=== PATIENT | female | born 1985 | race Caucasian/White ===

== ENCOUNTER 2021-08-10 14:37 | Inpatient (IN) | payer MEDICAID, SELFPAY ==
[2021-08-10 14:47] VITALS: BP 131/82; PULSE 78; RESP 16; TEMP 36.9; O2SAT 97; BMI 40.4
[2021-08-10 14:56] VITALS: BP 131/82; PULSE 78; RESP 16; TEMP 36.9; O2SAT 97
--- NOTE | 2021-08-10 14:57 | ED.C_ITS ---
HPI - Psych General: Chief Complaint: Psychiatric Symptoms Stated Complaint: SI Time Seen by Provider: 08/10/21 14:57 History of Present Illness: HPI Narrative: Ms. Bass is a 36-year-old lady with history of anxiety and depression who presents emergency department due to Julio César ideation with plan. She has difficulty characterizing any of her symptoms however she has had longstanding symptoms. She has previously been on medication but nothing recently does not feel that significantly helped. She does have a history of self-harm with longitudinal lacerations down the arms. Over the past few months she has had increased symptoms which includes wanting to sleep with the time or not sleeping at all. Binge eating or not eating. Loss of interest. And memory lapses. She had thoughts of stabbing herself with a knife and blacked out. She subsequently found the knife custodial through a cutting board and does not recall what happened. Overall the intensity symptoms has been worsening and is moderate to severe. She otherwise denies any new medical complaints. No other specific exacerbating relieving factors identified. Review of Systems General: Reports: 10 or more systems reviewed and unremarkable except in HPI and below PFSH ED PFSH: Medical History Psychiatric care Female Reproductive History: Date of last menstrual period: 08/01/21 Physical Exam Narrative: EXAM NARRATIVE: GENERAL/CONSTITUTIONAL - well-appearing. No acute distress. Obese Eyes -no scleral icterus, no conjunctival injection ENMT - Atraumatic external nose and ears. Moist mucous membranes NECK - supple. trachea midline CARDIOVASCULAR - regular rate and rhythm. RESPIRATORY -clear to auscultation bilaterally. ABDOMEN/GI - Nontender/Nondistended. MSK - Extremities without obvious deformity or tenderness to palpation SKIN - Warm, Dry NEURO - alert and appropriately oriented. Moves all extremities equally. PSYCH -tearful, anxious Course ED course: - Patient was seen and evaluated by me at bedside -Vital signs obtained - Initial evaluation notable for no acute distress, nontoxic appearance. - Labs notable for no significant abnormality to explain patient's symptoms. Ingestion negative. - Based on ED evaluation at this point there is no obvious condition that would preclude the patient from inpatient management of psychiatric concerns - Psychiatry service contacted and agreed admit the patient. Vital Signs: Vital signs: Vital Signs Temperature 97.4 F L 08/12/21 14:00 Pulse Rate 108 H 11/03/21 20:47 Respiratory Rate 16 08/12/21 20:47 Blood Pressure 113/84 08/12/21 20:47 Pulse Oximetry 98 08/12/21 20:47 MDM - Psych Medical Records: Attestation: I reviewed the patient's medical records. Lab Data: Attestation: I reviewed the patient's lab results. Labs: Lab Results 08/10/21 08/10/21 08/10/21 15:11 15:11 16:24 WBC 9.7 10^3/uL 10^3/ uL (4.0-10.0) RBC 4.71 10^6/uL 10^6 /uL (4.1-5.3) Hgb 14.6 g/dL g/dL (11.5-15.3) Hct 43.8 % % (37.0-47.0) MCV 93.0 fl fl (81-99) MCH 31.0 pg pg (28.0-34.0) MCHC 33.3 g/dL g/dL (30.0-36.0) RDW 12.6 % % (12.1-15.1) Plt Count 250 10^3/cmm 10^3 /cmm (130-400) MPV 12.7 fL H fL (7.4-10.4) Neut % (Auto) 58.2 % % Lymph % (Auto) 33.2 % % [place] % (Auto) 6.1 % % Eos % (Auto) 1.8 % % Baso % (Auto) 0.5 % % Neut # (Auto) 5.65 10^3/uL 10^3 /uL (1.8-7.7) Lymph # (Auto) 3.2 10^3/uL 10^3/ uL (0.8-4.8) Fre[place] # (Auto) 0.6 10^3/uL 10^3/ uL (0.2-0.9) Eos # (Auto) 0.2 10^3/uL 10^3/ uL (0.0-0.8) Baso # (Auto) 0.1 10^3/uL 10^3/ uL (0.0-0.1) Nucleated RBC % (a uto) 0 % % Nucleated RBCs # 0.0 /100WBC /100W BC Sodium Potassium Chloride Carbon Dioxide Anion Gap BUN Creatinine GFR Calculation Glucose Calculated Osmolal ity Calcium Total Bilirubin AST ALT Alkaline Phosphata se Total Protein Albumin Globulin TSH HCG, Qual Negative (Negative) Salicylates Urine Opiates Scre en Negative ng/mL ng /mL (Negative) Acetaminophen Ur Barbiturates Sc reen Negative ng/mL ng /mL (Negative) Ur Phencyclidine S crn Negative ng/mL ng /mL (Negative) Ur Amphetamines Sc reen Negative ng/mL ng /mL (Negative) U Benzodiazepines Scrn Negative ng/mL ng /mL (Negative) Urine Cocaine Scre en Negative ng/mL ng /mL (Negative) U Marijuana (THC) Screen Negative ng/mL ng /mL (Negative) Ethyl Alcohol 08/10/21 16:24 WBC RBC Hgb Hct MCV MCH MCHC RDW Plt Count MPV Neut % (Auto) Lymph % (Auto) [place] % (Auto) Eos % (Auto) Baso % (Auto) Neut # (Auto) Lymph # (Auto) [place] # (Auto) Eos # (Auto) Baso # (Auto) Nucleated RBC % (a uto) Nucleated RBCs # Sodium 138 mmol/L mmol/L (136-145) Potassium 4.2 mmol/L mmol/L (3.5-5.1) Chloride 105 mmol/L mmol/L (98-107) Carbon Dioxide 24 mmol/L mmol/L (22-29) Anion Gap 13.2 (5-19) BUN 8 mg/dL mg/dL (6-20) Creatinine 0.8 mg/dL mg/dL (0.5-0.9) GFR Calculation 81.2 mL/min L mL/ min (90-130) Glucose 83 mg/dL mg/dL (65-115) Calculated Osmolal ity 283 mOsm/kg L mOs m/kg (285-295) Calcium 8.6 mg/dL mg/dL (8.5-10.5) Total Bilirubin 0.5 mg/dL mg/dL (0.15-1.2) AST 18 U/L U/L (0-32) ALT 30 U/L U/L (0-33) Alkaline Phosphata se 52 IU/L IU/L (35-105) Total Protein 6.3 g/dL L g/dL (6.6-8.7) Albumin 3.9 g/dL g/dL (3.5-5.2) Globulin 2.4 g/dL g/dL (1.3-4.6) TSH 1.32 uIU/mL uIU/m L (0.27-4.20) HCG, Qual Salicylates < 0.3 mg/dL L mg/ dL (3-10) Urine Opiates Scre en Acetaminophen < 5.0 ug/mL L ug/ mL (10-30) Ur Barbiturates Sc reen Ur Phencyclidine S crn Ur Amphetamines Sc reen U Benzodiazepines Scrn Urine Cocaine Scre en U Marijuana (THC) Screen Ethyl Alcohol < 10 mg/dL mg/dL (0-10) EKG Data^: EKG 1: Attestation: I personally reviewed and interpreted this EKG as follows: EKG interpretation date: 08/10/21 EKG interpretation time: 15:55 Interpretation: Twelve-lead EKG shows a regular rhythm at a rate of 63. ND interval 163, QRS duration 92, QTc 409. Normal axis Interpretation: Sinus rhythm, nonspecific ST segment abnormalities Discharge Plan Discharge Patient Disposition: Admitted As Inpatient Admit Provider: Tima Carrizales Coding Level of Care Code ED Banking Manager for Karin Eric
--- NOTE | 2021-08-10 15:24 | ECG_ITS ---
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
[2021-08-10 15:44] LABS: HCG Qualitative Urine. Negative (Negative)
[2021-08-10 15:53] LABS: Amphetamines Screen Urine Negative (Negative); Barbiturates Screen Urine Negative (Negative); Benzodiazepines Screen Urine Negative (Negative); Cocaine Screen Urine Negative (Negative); Opiate Screen Urine Negative (Negative); PCP Screen Urine Negative (Negative); THC Screen Urine Negative (Negative)
[2021-08-10 16:30] LABS: Basophils # 0.1 10^3/uL (0.0-0.1); Basophils % 0.5 %; Eosinophils # 0.2 10^3/uL (0.0-0.8); Eosinophils % 1.8 %; Hematocrit 43.8 % (37.0-47.0); Hemoglobin 14.6 g/dL (11.5-15.3); Lymphocytes # 3.2 10^3/uL (0.8-4.8); Lymphocytes % 33.2 %; Mean Corpuscular HGB Conc 33.3 g/dL (30.0-36.0); Mean Platelet Volume 12.7 fL (7.4-10.4); Monocytes # 0.6 10^3/uL (0.2-0.9); Monocytes % 6.1 %; Neutrophils # 5.65 10^3/uL (1.8-7.7); Neutrophils % 58.2 %; Nucleated Red Blood Cells % 0 %; Platelet Count 250 10^3/cmm (130-400); Red Blood Count 4.71 10^6/uL (4.1-5.3); Red Cell Distribution Width 12.6 % (12.1-15.1); White Blood Count 9.7 10^3/uL (4.0-10.0)
[2021-08-10 17:25] LABS: Alanine Aminotransferase 30 U/L (0-33); Albumin Level 3.9 g/dL (3.5-5.2); Alkaline Phosphatase 52 IU/L (35-105); Anion Gap 13.2 (5-19); Aspartate Amino Transferase 18 U/L (0-32); Blood Urea Nitrogen 8 mg/dL (6-20); Calcium 8.6 mg/dL (8.5-10.5); Carbon Dioxide 24 mmol/L (22-29); Chloride 105 mmol/L (98-107); Globulin 2.4 g/dL (1.3-4.6); Glomerular Filtration Rate 81.2 mL/min (90-130); Glucose 83 mg/dL (65-115); Osmolality Calculated 283 mOsm/kg (285-295); Potassium 4.2 mmol/L (3.5-5.1); Sodium 138 mmol/L (136-145); Total Bilirubin 0.5 mg/dL (0.15-1.2); Total Protein 6.3 g/dL (6.6-8.7)
[2021-08-10 17:26] LABS: Acetaminophen < 5.0 ug/mL (10-30); Alcohol Level < 10 mg/dL (0-10); Salicylate < 0.3 mg/dL (3-10)
[2021-08-10 17:33] LABS: Thyroid Stimulating Hormone 1.32 uIU/mL (0.27-4.20)
[2021-08-10] MEDS: nicotine 21 mg Patch 1 PATCH TRANSDERMA (18:13)
[2021-08-10] MEDS: acetaminophen 500 mg Tablet 1000 MG PO (18:28)
[2021-08-10 19:44] VITALS: BP 92/61; PULSE 72; RESP 16; O2SAT 94
[2021-08-10 21:39] VITALS: BP 129/93; PULSE 75; RESP 19; TEMP 36.7; O2SAT 97
[2021-08-11 05:52] VITALS: BP 122/78; PULSE 96; RESP 19; TEMP 37.2; O2SAT 95
[2021-08-11 06:00] VITALS: BP 122/78; PULSE 96; RESP 19; TEMP 37.2; O2SAT 95
--- NOTE | 2021-08-11 11:43 | NPU.GN ---
[facility] Topic:Mental Health Crossword Puzzle/ Psych Education General Mood of Group: Mariana did not attend group today she wanted to sleep.
[2021-08-11 14:00] VITALS: BP 117/81; PULSE 71; RESP 18; TEMP 36.2; O2SAT 96
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
--- NOTE | 2021-08-11 17:08 | PC.NURSE ---
PATIENT HAS REMAINED IN ROOM EXCEPT FOR MEALS, WENT TO GROUP BUT DID NOT PARTICIPATE. SHE HAS NOT REQUESTED ANY PRN MEDICATIONS. CONTINUES TO ENDORSE PASSIVE SI AND CONTRACTS FOR SAFETY, WILL CONTINUE TO ROUND Q 15 MINUTES.
[2021-08-11] MEDS: trazodone 50 mg Tablet PO (20:50)
[2021-08-11] MEDS: hyDROXYzine 25 mg Capsule 50 MG PO (20:50)
[2021-08-11 21:34] VITALS: BP 109/79; PULSE 76; RESP 16; TEMP 531.1; TEMP 988; O2SAT 99
--- NOTE | 2021-08-12 03:06 | PC.NURSE ---
Patient awake at start of shift. Quiet, withdrawn, but does deny SI this evening. Patient did report increased anxiety d/t the unit being loud. Denied thoughts of aggression towards others but did agree to come to staff if she felt that way. Did receive PRN Vistaril and Trazodone at 2049 to good effect. In bed most of night without complaint. Up one time at 0245 for snack then returned to bed.
[2021-08-12 06:00] VITALS: BP 120/84; RESP 16; TEMP 36.6
--- NOTE | 2021-08-12 11:37 | NPU.GN ---
[facility] Group Topic: Meditation Psych Education General Mood of Group: Mariana did not attend group she wanted to sleep.
[2021-08-12] MEDS: fluoxetine 20 mg Capsule PO (13:08)
[2021-08-12] MEDS: BuSPIRONE 10 mg Tablet 15 MG PO ×2 (13:08→20:22)
[2021-08-12 14:00] VITALS: BP 94/63; PULSE 67; RESP 18; TEMP 36.3; O2SAT 95
--- NOTE | 2021-08-12 16:44 | P.NPUPN_ITS ---
Subjective NPU Subjective: Interval history: Patient presents today reporting that she is not having any issue with the medications that were started by this technical writer and editor this morning. Thus far she is tolerating the Prozac and the BuSpar without any concern. She continues to endorse some depression and anxiety but is optimistic that help is on the way. Mental Status Exam MSE Comments: This is an obese vs. morbidly obese, white female, in hospital scrubs, with adequate grooming and eye contact. No abnormal movements, except for mild psychomotor retardation. Mostly cooperative with exam in mild distress. Speech was decreased rate and volume. Mood described as a little better but still find that one patient annoying; affect congruent. Thought process, organized. Thought content: patient denied any suicidal or homicidal ideation, there were no delusions reported or noted, patient denied any auditory or visual hallucinations. Attention, concentration, and memory appear intact but none were formally tested. She is alert and oriented times three. Insight and judgment are good. Vitals/I&O/Wt Last Vital Signs Temp 97.4 F L 08/12/21 14:00 Pulse 108 H 08/12/21 20:47 Resp 16 08/12/21 20:47 BP 113/84 08/12/21 20:47 Pulse Ox 98 08/12/21 20:47 Data NPU : 08/10/21 16:24 08/10/21 16:24 A&P Additional A&P Information (1) Major depressive disorder: (2) Generalized anxiety disorder: (3) PTSD (post-traumatic stress disorder): Additional A&P Information This is a 36-year-old, white female, with major depressive disorder, recurrent, severe, post-traumatic stress disorder, and generalized anxiety disorder, who presents reporting that she is off medication and needs to get it restarted so that she can function more effectively. 1. Continue current medication. Start Prozac 20 mg p.o. every morning and BuSpar 15 mg p.o. twice daily. 2. Encourage individual, group, and milieu therapy. 3. Continue q-15 minute checks for safety. Involuntary Hold Information 96 Hour Hold: 96 Hour Involuntary Admission: No Attestations NPU Medical Necessity Statement*: Inpatient hospitalization is medically necessary and the clinically appropriate intervention, at this time. We will monitor medications and make changes as indicated. Likely length of stay is 2-4 days. Coding Level of Care Code Acute Door Clamper for Karin Eric
[2021-08-12] MEDS: trazodone 50 mg Tablet PO (20:22)
[2021-08-12 20:47] VITALS: BP 113/84; PULSE 108; RESP 16; O2SAT 98
--- NOTE | 2021-08-12 23:56 | PC.NURSE ---
Administered trazodone 50mg PO for sleep per patient request. Medication effective, patient resting with eyes closed in bed with equal, nonlabored respirations
--- NOTE | 2021-08-13 04:38 | PC.NURSE ---
Upon assessment patient in her room in bed. Patient alert/oriented x4. Patient has good eye contact, flat affect. She was unable to rate her depression, rated anxiety 8. Denied any SI/HI, a/v hallucinations. Patient is withdrawn and is not social with peers. Will continue to monitor and follow plan of care. Q 15 min safety checks per protocol.
[2021-08-13 06:00] VITALS: RESP 17
[2021-08-13] MEDS: BuSPIRONE 10 mg Tablet 15 MG PO ×2 (09:58→17:56)
[2021-08-13] MEDS: fluoxetine 20 mg Capsule PO (09:58)
--- NOTE | 2021-08-13 12:08 | NPU.GN ---
[facility] Group Topic:Meditation/ Depression Bingo General Mood of Group: Mariana did attend group today and did very well. Mariana participated and socialized with others and enjoyed meditation and depression bingo. After group this handbook writer aided client in discussing [facility] services and Mariana completed the intake packed with the assistance of this handbook writer. [facility] completed.
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
[2021-08-13 12:59] VITALS: BP 126/78; PULSE 86; RESP 17; O2SAT 98
[2021-08-13] MEDS: nicotine 2 mg Gum BUCCAL (13:21)
[2021-08-13] MEDS: trazodone 50 mg Tablet PO (17:56)
== END 2021-08-13 18:01 | disposition home or self-care (01) | DRG 885 ==
LOC: ER 16:01 → NP 19:16
PROVIDERS: Admitting Provider Psychiatry & Neurology Psychiatry; Emergency Provider Emergency Medicine; Visit Provider Psychiatry & Neurology Psychiatry
DX: F33.2 Major depressive disorder, recurrent severe without psychotic features (principal); R45.851 Suicidal ideations; F41.1 Generalized anxiety disorder; F43.10 Post-traumatic stress disorder, unspecified; Z81.8 Family history of other mental and behavioral disorders; Z81.4 Family history of other substance abuse and dependence; Z62.810 Personal history of physical and sexual abuse in childhood; Z91.52 Personal history of nonsuicidal self-harm
CPT/HCPCS: 80053; 80306; 80307; 81025; 84443; 85025; 93005; 97165; 99285

== ENCOUNTER → 2021-09-14 14:16 | Outpatient (BNVA) | payer OTHER, SELFPAY | PROVIDERS: Visit Provider Psychiatry & Neurology Psychiatry | DX: F41.1 Generalized anxiety disorder (principal); F32.9 Major depressive disorder, single episode, unspecified; F43.10 Post-traumatic stress disorder, unspecified | CPT/HCPCS: 90792 ==